=== PATIENT | female | born 1995 | race Caucasian/White ===

== ENCOUNTER 2016-10-09 11:38 | Day surgery (SDC) | payer BC ==
[~2016-10-09] VITALS: Ht 147.3 cm; Wt 75.5 kg
[~2016-10-09 11:38] MED LIST: IBUP-1542 PO; ONDA8TAB14 PO
[2016-10-09 12:58] VITALS: Ht 147.3 cm; Wt 75.5 kg
[2016-10-09 13:08] VITALS: BP 99/62; RESP 12
[2016-10-09 13:34] VITALS: BP 114/63; PULSE 81; RESP 15
[2016-10-09] MEDS ORDERED: LIDOCAINE 2% (SDV) 5 ML INJ ONE (14:27)
[2016-10-09] MEDS ORDERED: MIDAZOLAM 1 MG/ML 2 ML INJ ONE (14:27)
[2016-10-09] MEDS ORDERED: PROPOFOL 40 ML ONE (14:27)
--- NOTE | 2016-10-09 15:11 | GILP ---
DATE OF PROCEDURE: 10/09/2016 PROCEDURE: Esophagogastroduodenoscopy with biopsies. BRIEF HISTORY AND INDICATIONS: The patient is being evaluated for abdominal pain and dyspepsia. PREMEDICATION: Monitored anesthesia care by anesthesiologist. SURGEON: Mili Bellamy MD INSTRUMENT USED: Olympus panendoscope. TECHNIQUE: After informed consent, with the patient/relatives understanding the procedure, its indic ations, potential risks and complications, including but not limited to: allergic reaction, bleeding , perforation or infection, and after all pertinent questions were answered to the patients satisfac tion, the patient/relatives signed witnessed informed consent. Following this, premedication was administered slowly IV push under careful cardiovascular and respi ratory monitoring with pulse oximetry, automatic blood pressure and form grader operator. Once the sedative effect was achieved the patient was place in the left lateral decubitus, the panen doscope was introduced and advanced under visual control. Careful examination of the upper gastrointestinal tract, both on insertion as well as withdrawal of the instrument disclosed the following findings: ESOPHAGUS: The distal esophagus shows erythema and edema of the mucosa of a moderate degree. STOMACH: Upon entrance to the stomach, air was insufflated, the gastric zamudio distended normally. There is erythema and edema of the mucosa of a moderate degree. Biopsies were obtained to rule out H. pylori infection. PYLORUS: The pylorus appears patent and within normal limits, with no evidence of gastric outlet ob struction. DUODENUM: The duodenal mucosa was carefully examined in the duodenal bulb as well as the second por tion of the duodenum and appears unremarkable with no evidence of duodenitis, ulcer or neoplasm. The instrument was then withdrawn, the patient tolerated the procedure well and was transfer out of the endoscopy suite awake, and in good condition to continue recovery under observation IMPRESSION: 1. Moderate distal esophagitis. 2. Moderate gastritis, rule out Helicobacter pylori infection, biopsies obtained. PLAN: The patient will be treated with PPIs; i.e. omeprazole 40 mg daily. Further recommendation w ill depend on patient's clinical course as well as review of biopsies. Dictated By: MILI BELLAMY MS/PACO Conf#: [id number] DID#: [id number]
== END 2016-10-09 17:39 | disposition home or self-care (01) ==
LOC: GIL 11:38
PROVIDERS: ATTEND Internal Medicine Gastroenterology
DX: K29.30 Chronic superficial gastritis without bleeding (principal)
CPT/HCPCS: 43239; 84702; 88305; 88312; J2250; Z7610

== ENCOUNTER 2016-12-27 11:50 | Emergency (ER) | payer BC ==
[~2016-12-27] VITALS: Ht 152.4 cm; Wt 71.0 kg
[2016-12-27 11:53] VITALS: Ht 152.4 cm; Wt 71.0 kg
[2016-12-27] MEDS ORDERED: DEXAMETHASONE 10 MG/ML 1 ML INJ IM ONE (13:00)
[2016-12-27] MEDS ORDERED: KETOROLAC 30 MG INJ IM STA (14:12)
[2016-12-27] MEDS ORDERED: AMOX1TAB10 PO (14:42)
[2016-12-27] MEDS ORDERED: PRED20TA PO (14:42)
--- NOTE | 2016-12-27 15:20 | ERA ---
ER Documentation Chief Complaint Date/Time DATE: 12/27/16 TIME: 15:17 Chief Complaint Complains of a sorethroat x 2 weeks HPI 21-year-old female with a chief complaint of pharyngitis worsening over the past week. Patient has had similar symptoms in the past. Patient has been diagnosed with tonsillitis in the past. Mild cough. Has taken Tylenol with minimal relief. Worse with swallowing. Mild change in voice. No hot potato voice. Denies difficulty breathing, dysphagia, drooling, fatigue, oral swelling , ear pain, or meningismus. No recent travel. Denies drug use/alcohol abuse. Patients vaccination status is up to date. ROS All systems reviewed and are negative except as per history of present illness. Medications Home Meds Active Scripts Prednisone* (Prednisone*) 20 Mg Tab, 20 MG PO DAILY for 4 Days, TAB Prov:QUAN MONTOYA PA-C 12/27/16 Amoxicillin/Potassium Clav (Amox-Clav 875-125 mg Tablet) 875-125 mg Tab, 1 TAB PO BID for 10 Days, #20 TAB Prov:QUAN MONTOYA PA-C 12/27/16 Reported Medications [None] No Conflict Check 10/09/16 Allergies Allergies: Coded Allergies: No Known Allergy (Verified , 01/16/16) PMhx/Soc History of Surgery: Yes (APPENDECTOMY) Anesthesia Reaction: No Hx Neurological Disorder: No Hx Respiratory Disorders: No Hx Cardiac Disorders: No Hx Psychiatric Problems: Yes (ANXIETY/DEPRESSION) Hx Miscellaneous Medical Probl: Yes (OBESITY) Hx Alcohol Use: No Hx Substance Use: No Hx Tobacco Use: No Physical Exam Vitals Vital Signs Date Time Temp Pulse Resp B/P Pulse Ox O2 Delivery O2 Flow Rate FiO2 12/27/16 11:53 98.6 109 20 119/77 98 Physical Exam Const: Healthy-appearing, well-nourished, well-developed, no acute distress. Throat: Enlarged tonsils bilaterally. Moist mucous membranes. Neck: Tender anterior cervical lymphadenopathy palpated bilaterally. No posterior cervical lymphadenopathy, masses or goiter palpated. Trachea midline. Full range of motion. Supple. ~ No meningismus. Skin: No petechiae or rashes. No ulcer, induration, jaundice. Good turgor. Resp: No dyspnea, stridor, tripoding or drooling. Good air movement. Clear to auscultation bilaterally. Head: Normocephalic, Atraumatic. Eyes: Non-injected; No scleral erythema, discharge or foreign body. EOMI bilaterally. PERRLA. Ears: Normal External Ears, EACs clear, TM normal bilaterally without erythema. Nose: Normal nose without discharge, septal deviation, or sinus tenderness. Cardio: Regular rate and rhythm; No murmurs, gallops or rubs auscultated. No JVD grossly observed. Radial and posterior tibial pulses 2+ bilaterally. Capillary refill less than 2 seconds. Abd: Soft, non tender, non distended. No guarding, masses. Normal bowel sounds. No McBurney's point tenderness. MS: Normal motor strength, normal tone with gross examination. Back: No midline, flank or CVA tenderness. Ext: No cyanosis, edema or palpable cord. Normal movement of all extremities grossly observed. Neur: Awake, alert and oriented x3. Neurovascularly intact bilaterally. Psych: Normal Mood and Affect. Results 24 hrs Current Medications Medications (Trade) Dose Ordered Sig/Chavez Route PRN Reason Start Time Stop Time Status Last Admin Dose Admin Dexamethasone (Decadron) 8 mg ONCE ONCE IM 12/27/16 13:00 12/27/16 13:01 DC 12/27/16 13:09 Ketorolac Tromethamine (Toradol) 30 mg ONCE STAT IM 12/27/16 14:12 12/27/16 14:13 DC 12/27/16 14:38 Procedures/MDM 21-year-old female presenting with a chief complaint of pharyngitis as described in history and physical examination. Patient was given Decadron in the ED with mild relief of symptoms. Patient started complaining of more pain. Patient was given Toradol 30 mg IM with complete relief of pain as well as other symptoms. Denies any recent fever. Patient has had a cough. Centor criteria 2 out of 5. This time a little suspicion for SBI,peritonsillar abscess , acute epiglottitis, Faustino's angina, or other airway obstructive pathologies. Most likely diagnosis is recurrent tonsillitis. I have given the patient antibiotics outpatient patient will be treated outpatient with Augmentin 10 days, prednisone 4 days, and [id number] ibuprofen as needed every 6 hours for any discomfort. I have spoke with the patient regarding their condition and future management. They have verbally responded that they understand their status and treatment plan. The patients vitals are stable, and their current condition is appropriate for discharge. The patient will be given discharge instructions with return precautions. Departure Diagnosis: Primary Impression: Tonsillitis Condition: Stable Patient Instructions: Adult Tonsillectomy, When Your Child Has Pharyngitis or Tonsillitis Additional Instructions: Follow up with your PCP within the next 1-3 days for a more thorough evaluation and a possible referral to a specialist. Return the the emergency department immediately if symptoms worsen or change. If you have any questions regarding medications, ask your pharmacist or us before you leave. If any adverse reactions occur while taking your medications, discontinue the treatment and return to the emergency department immediately. Take your medications as directed, and complete the entire course of treatment. QUAN MONTOYA PA-C Dec 27, 2016 15:20
[2016-12-27 16:25] VITALS: BP 122/80; PULSE 81; RESP 18; TEMP 98.6
== END 2016-12-27 16:26 | disposition home or self-care (01) ==
LOC: FTE 11:50
DX: J03.90 Acute tonsillitis, unspecified (principal); E66.9 Obesity, unspecified; Z68.30 Body mass index [BMI] 30.0-30.9, adult
CPT/HCPCS: 96372; 99284; J1100; J1885